=== PATIENT | female | born 1980 ===

== ENCOUNTER 2019-03-18 08:29 | Emergency (ER) | payer OTHER ==
[~2019-03-18] VITALS: Ht 167.6 cm; Wt 54.4 kg
== END 2019-03-18 10:29 | disposition home or self-care (01) ==
LOC: ER 08:29
DX: S93.401A Sprain of unspecified ligament of right ankle, initial encounter (principal); W18.39XA Other fall on same level, initial encounter; Y93.89 Activity, other specified; Y92.488 Other paved roadways as the place of occurrence of the external cause; Y99.8 Other external cause status

== ENCOUNTER 2024-02-08 13:27 | Outpatient (CLI) | payer OTHER | END 2024-02-08 13:32 | disposition home or self-care (01) | LOC: TOM 13:27 | DX: N20.0 Calculus of kidney (principal); R10.2 Pelvic and perineal pain; Z87.442 Personal history of urinary calculi; N60.19 Diffuse cystic mastopathy of unspecified breast; N63 Unspecified lump in breast; N64.4 Mastodynia; R92.1 Mammographic calcification found on diagnostic imaging of breast; R92.0 Mammographic microcalcification found on diagnostic imaging of breast ==